=== PATIENT | male | born 1940 | race Caucasian/White ===

== ENCOUNTER 2016-07-27 21:13 | Emergency (ER) | payer MEDICARE, MEDICAID ==
[2016-07-27 21:47] VITALS: TEMP 98.3; BMI 32.8
[2016-07-27] MEDS ORDERED: MORPHINE 4 MG/ML INJECTION IV ONE (21:52)
[2016-07-27] MEDS ORDERED: SODIUM CHLORIDE 0.9% 10 ML FLUSH FLUSH PRN (21:52)
--- NOTE | 2016-07-27 22:04 | EDPRACDOC ---
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 C/o headache, R shoulder pain. Denies LOC, vision changes, n/v, cp, sob, abd pain, n/v, changes in bowel or bladder, wounds. Pain Severity: Reports: Mild Injuries/Pain Location: Reports: head Reason for Fall: Reports: lightheaded Loss of Consciousness: no loss of consciousness Associated Symptoms (Fall): Reports: headache Allergies/Adverse Reactions: Allergies hydromorphone [Hydromorphone] Allergy (Verified 07/27/16 21:47) Confusion hydromorphone HCl [From Dilaudid] Allergy (Verified 07/27/16 21:47) Confusion Home Medications: Ambulatory Orders Allopurinol [Zyloprim] 300 mg PO QAM 09/18/12 Tamsulosin HCl [Flomax] 0.4 mg PO QAM 08/20/13 Ferrous Sulfate [Feosol] 325 mg PO BID 02/11/14 Sotalol HCl [Betapace] 120 mg PO BID 02/11/14 Amlodipine Besylate [Norvasc] 5 mg PO QAM 10/01/14 Duloxetine [Cymbalta] 30 mg PO BID 03/15/15 Omeprazole 40 mg PO QAM 03/15/15 Valsartan [Diovan] 160 mg PO QAM 03/15/15 Pravastatin [Pravachol] 40 mg PO HS 07/15/15 Aspirin [Aspirin, Chewable] 81 mg PO QAM 09/06/15 Buspirone HCl [Buspar] 10 mg PO BID PRN 02/08/16 Thiamine Mononitrate [Vitamin B-1] 300 mg PO DAILY 05/05/16 Apixaban [Eliquis] 2.5 mg PO BID 05/24/16 Quetiapine Fumarate [Seroquel] 50 mg PO QHS 05/24/16 Sertraline HCl [Zoloft] 50 mg PO DAILY 05/24/16 Tramadol HCl [Ultram] 50 mg PO Q6H PRN #15 tab 07/27/16 ED Past Medical History - History Reviewed Yes Nurses notes reviewed and agree except as marked - Patient Medical History Neurological History: Reports: Cerebrovascular Accident (04/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 RESOLVED) Cardiac History: Reports: Coronary Artery Disease (MINIMAL STENOSIS ), Atrial Fibrillation (on Sotalol.), Hypertension, Congestive Heart Failure (DIASTOLIC. Echo 04/2015: EF 50-55%. Hypokinesis. RV pres 32mmHg.), Cardiac Catheterization (2011 MINIMAL STENOSIS 20% LAD), Stress Test, Hypercholesterolemia, Pacemaker ( 08/2013). Denies: Heart Attack (Pt states he did not have [place]) Respiratory History: GI/ History: Reports: Gastroesophageal Reflux, Diverticulosis Musculoskeletal History: Reports: Arthritis, Gout Psychological History: Reports: Depression (CYMBALTA), Anxiety, Substance Use Disorder (history of alcohol abuse) Systemic History: Reports: Cancer (Rectal cancer status post low anterior resection), Anemia (IRON DEFICIENCY). Denies: Diabetes (Patient denies DM; has had pre-diabetes in past.) Surgical History: Reports: Cholecystectomy (2014), Cardiac Catheterization ( 2011 MINIMAL STENOSIS 20% LAD), Hernia Surgery (VENTRAL repair 02/15/14), Tonsillectomy/Adnoidectomy, Other (Low anterior resection, rectal/colon, Dr. López.) Date of Last Radiation Treatment: NA Date of Last Chemotherapy Date: NA - Family Medical History Reports: Hypertension (Sister), Cancer (Anterior resection for rectal cancer with ileostomy, revision of ileostomy). Denies: Diabetes, Stroke, Cardiac Disorders - Social Medical History Smoking Status: Heavy tobacco smoker (5 or more cigarettes/day or daily pipe/ cigar) Social History: Reports: Substance Use Disorder (history of alcohol abuse) ETOH: Abuse EDM Review of Systems - Review of Systems Constitutional: No Symptoms Reported. negative: Fever, Chills, Weakness, Fatigue, Loss of Appetite Eyes: No Symptoms Reported. negative: Redness, Blurred Vision, Double Vision, Discharge, Pain, Light Sensitive, Photophobia Respiratory: No Symptoms Reported. negative: Cough, Brassy Cough, Barky Cough, Shortness of Breath, Wheezing, Hemoptysis Cardiovascular: No Symptoms Reported. negative: Chest Pain, Palpitations, Syncope, Edema, Orthopnea, PND, Skin Mottling, Cyanosis Gastrointestinal: No Symptoms Reported. negative: Pain, Constipation, Nausea, Vomiting, Diarrhea, Melena, Formula Intolerance Genitourinary: No Symptoms Reported. negative: Dysuria, Hematuria, Frequency, Discharge, Bleeding, Testicular Pain, Neurological: Headache Musculoskeletal: Shoulder Integumentary: No Symptoms Reported. negative: Itching, Rash, Bruising, Wound Allergic/Immunologic: No Symptoms Reported. negative: Hives, Itching Hematologic: No Symptoms Reported. negative: Lymphadenopathy, Easy Bruising, Easy Bleeding Psychiatric: No Symptoms Reported. negative: Anxiety, Depression, Hallucinations, Insomnia, Suicidal - Physical Exam Constitutional: Alert Oriented to: Time, Person, Place Last recorded Vital Signs: Last Vital Signs Temp 98.3 F 07/27/16 21:15 Pulse 76 07/27/16 21:15 Resp 20 07/27/16 21:15 BP 136/64 07/27/16 21:15 Pulse Ox 95 07/27/16 21:15 Oxygen Pulse Oxygen Saturation 95 O2 Device Room Air Oxygen Flow Rate Fraction of Inspired Oxygen ( FIO2) - HEENT Head: Normal ( normocephalic) Eye Exam: Normal (PERRL, EOMI, Sclera white) Neck: Normal (FROM, trachea at midline) - Respiratory/Cardiovascular Respiratory: Normal - CTA (BBS clear to auscultation without adventitious sounds ) Cardiovascular: Normal (RRR without murmur, gallop or rub) - GI Auscultation: Normal (NABS) Palpation: Normal (Soft,No rebound or guarding, non distended) Tenderness: Non tender, Other (no luq or ruq tenderness) Silva's Sign: Negative - Musculoskeletal Back: Normal (Non-Tender) Extremities: Normal (Normal tone, Pulses 2+ No cyanosis or edema, FROM) - Integumentary Skin: Normal, Warm, Dry Lymphatics: Normal (no adenopathy) - Neurologic Memory Impaired: Normal Motor Function: Normal (Normal tone, Pulses 2+ No cyanosis or edema, FROM) Mood Description: Normal Perception: Normal ED Injury/Fall Exam - Physical Exam Head Injury: no evidence of injury Extremity Exam: pain with movement (R shoulder) Skin: Normal, Warm, Dry - [place] Coma Score Best Eye Response ([place]): (4) open spontaneously Best Verbal Response ([place]): (5) oriented Best Motor Response ([place]): (6) obeys commands [place] Total: 15 - Differential Diagnosis Contusion, Fracture, ICH, Mechanical Fall - Results 07/27/16 22:03 07/27/16 22:03 07/27/16 22:57 Laboratory Results - last 24 hr 07/27/16 07/27/16 07/27/16 22:03 22:03 22:03 WBC 9.1 RBC 4.10 L Hgb 13.3 L Hct 39.2 L MCV 96 H MCH 32.5 H MCHC 34.0 RDW 14.5 Plt Count 158 MPV 11.3 H Neut % (Auto) 58.5 Lymph % (Auto) 26.1 Keith % (Auto) 7.0 Eos % (Auto) 7.5 H Baso % (Auto) 0.9 Absolute Neuts (auto) 5.28 Absolute Lymphs (auto) 2.37 PT 10.5 INR 1.0 APTT 25.6 Sodium 136 L Potassium 5.4 H Chloride 102 Carbon Dioxide 24 Anion Gap 15 BUN 10 Creatinine 0.80 Estimated GFR (MDRD) > 60 Glucose 145 H Calculated Osmolality 264 L Calcium 9.5 Total Bilirubin 0.4 AST 49 ALT 68 Alkaline Phosphatase 78 Troponin I < 0.01 Total Protein 7.1 Albumin 4.1 - EKG EKG #1 EKG Time: 22:02 Rate: bpm: 78 [place]: LAD Block: IVCD ST: Normal Comparison: 03/08/09 (no significant change) - Diagnostic Imaging Chest Image interpreted by: Radiologist IMPRESSION: No active cardiopulmonary disease. 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 No acute abnormality seen. Head Image interpreted by: Radiologist IMPRESSION: Mild diffuse cortical atrophy. Mild chronic ischemic white matter disease. 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 No acute intracranial abnormality seen. Decision Time to Discharge: 22:57 - Departure Disposition: Home Condition: Good Final Diagnosis: Accidental fall Headache Qualifiers: Headache type: post-traumatic Headache chronicity pattern: acute headache Intractability: not intractable Qualified Code(s): G44.319 - Acute post- traumatic headache, not intractable Sprain of right shoulder Qualifiers: Encounter type: initial encounter Shoulder sprain type: unspecified sprain Qualified Code(s): S43.401A - Unspecified sprain of right shoulder joint, initial encounter Instructions: RICE: Routine Care for Injuries, Headache, Shoulder Sprain (ED) Education/Counseling Given To: Patient Education/Counseling Given Regarding: Diagnosis, Treatment, Follow Up Referrals: None,No Provider [Primary Care Provider] - One Week Dae Roman MD [Staff Physician] - One Week Reginaldo Sullivan MD [Staff Physician] - One Week Prescriptions: Tramadol HCl [Ultram] 50 mg PO Q6H PRN #15 tab PRN Reason: Pain Additional Instructions: Return for worse or different symptoms.
[2016-07-27 22:29] LABS: BLOOD UREA NITROGEN 10 MG/DL (9-20); CALCIUM 9.5 MG/DL (8.4-10.2); CALCULATED OSMOLALITY 264 MOs/Kg (270-290); CHLORIDE 102 mEq/L (98-107); GLUCOSE 145 MG/DL (70-99); SODIUM LEVEL 136 mEq/L (137-146); TOTAL PROTEIN 7.1 G/DL (6.3-8.2)
[2016-07-27 22:31] LABS: PARTIAL THROMB. TIME 25.6 SEC (22-35)
[2016-07-27 22:43] LABS: AUTOMATED BASOPHIL 0.9 % (0-2); AUTOMATED EOSINOPHIL 7.5 % (0-5); AUTOMATED LYMPH 26.1 % (17-44); AUTOMATED NEUTROPHIL 58.5 % (45-76); MPV 11.3 fL (7.4-10.4)
--- NOTE | 2016-07-27 22:48 | DIRPT ---
CLINICAL DATA: Acute right shoulder pain after fall. EXAM: RIGHT SHOULDER - 2+ VIEW COMPARISON: None. FINDINGS: There is no evidence of fracture or dislocation. Moderate degenerative changes seen involving the right glenohumeral joint. Soft tissues are unremarkable. 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 No acute abnormality seen. Electronically Signed By: Ari Prajapati Jr, M.D. On: 07/27/2016 22:45
--- NOTE | 2016-07-27 22:48 | DIRPT ---
CLINICAL DATA: 76-year-old male with fall EXAM: CHEST 2 VIEW COMPARISON: Chest radiograph dated 05/25/2016 FINDINGS: Two views of the chest demonstrate emphysematous changes of the lungs. No focal consolidation, pleural effusion, or pneumothorax. An accessory azygos fissure is noted. Stable cardiac silhouette. Left pectoral pacemaker device. The osseous structures grossly unremarkable. IMPRESSION: No active cardiopulmonary disease. Electronically Signed By: Anthony Lindo M.D. On: 07/27/2016 22:45
--- NOTE | 2016-07-27 22:53 | DIRPT ---
CLINICAL DATA: Headache and fall. No loss of consciousness. EXAM: CT HEAD WITHOUT CONTRAST TECHNIQUE: Contiguous axial images were obtained from the base of the skull through the vertex without intravenous contrast. COMPARISON: CT scan of December 19, 2015. FINDINGS: Bony calvarium appears intact. Mild diffuse cortical atrophy is noted. Mild chronic ischemic white matter disease is noted. Right occipital encephalomalacia is noted consistent with old infarction. No mass effect or midline shift is noted. Ventricular size is within normal limits. There is no evidence of mass lesion, hemorrhage or acute infarction. IMPRESSION: Mild diffuse cortical atrophy. Mild chronic ischemic white matter disease. 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 No acute intracranial abnormality seen. Electronically Signed By: Ari Prajapati Jr, M.D. On: 07/27/2016 22:50
[2016-07-27 23:24] VITALS: BP 133/60; PULSE 75
== END 2016-07-27 23:27 | disposition home or self-care (01) ==
LOC: ED 21:13
DX: G44.319 Acute post-traumatic headache, not intractable (principal); S43.401A Unspecified sprain of right shoulder joint, initial encounter; W19.XXXA Unspecified fall, initial encounter; Y93.9 Activity, unspecified
CPT/HCPCS: 36415; 70450; 71020; 73030; 80053; 84484; 85025; 85610; 85730; 93005; 96374; 99283; J2270